=== PATIENT | male | born 1950 | race Caucasian/White ===

== ENCOUNTER 2017-04-10 10:15 | Day surgery (SDC) | payer BC ==
--- NOTE | ~2017-04-10 | EGD ---
EGD REPORT [facility] [address] [address] NAME: CORNELL MCGARRY : [birth year] STATUS : REG [facility]#: [id number] AGE: 66 ADM/REG DATE : 04/10/17 MR#: [id number] REPORT SERV DATE: 04/10/17 DICTATED BY: TRUNG NASCIMENTO DATE: 04/10/17 REPORT STATUS : Draft [facility]: [facility] DATE: 04/10/17 Endoscopy Center Patient Name: Cornell Mcgarry Date of : 1950 Attending MD: RTUNG NASCIMENTO, Procedure Date No Time: 04/10/2017 Procedure: Upper EUS Indications: Esophageal mucosal mass/polyp found on endoscopy Referring MD: BRIELLE GONZALEZ, MERRILL BHATIA MD Medicines: Monitored Anesthesia Care Complications: No immediate complications. Estimated blood loss: None. Procedure: Pre-Anesthesia Assessment: - ASA Grade Assessment: II - A patient with mild systemic disease. After obtaining informed consent, the endoscope was passed under direct vision. Throughout the procedure, the patient's blood pressure, pulse, and oxygen saturations were monitored continuously. The Endoscope was introduced through the mouth, and advanced to the second part of duodenum. The GIF [id number] was introduced through the mouth, and advanced to the second part of duodenum. Findings: Endoscopic Finding : A medium-sized, fungating mass with no bleeding and with no stigmata of recent bleeding was found in the lower third of the esophagus. The mass was partially obstructing. This spanned from the GE junction at 41 to 38 cm proixmally. Diffuse moderately congested mucosa was found in the cardia. This appeared to be likely submucosal infiltration from the tumor and extended about 2 cm distal to GE junction. The exam of the stomach was otherwise normal. The examined duodenum was endoscopically normal. Endosonographic Finding : A hypoechoic mass was found in the lower third of the esophagus. This appeared to be extending into cardia with deepest depth of invasion in the more distal portion. The lesion was partially circumferential (involving 60% of the lumen). The endosonographic borders were well-defined. There was sonographic evidence suggesting invasion into the adventitia (Layer 5). No lymphadenopathy seen. There was no sign of significant endosonographic abnormality in the entire pancreas. The pancreas was well visualized. There was no sign of significant endosonographic abnormality in the EGD REPORT [address] [place]. [address] NAME: CORNELL MCGARRY : [birth year] STATUS : [place] [facility] [place]#: [id number] AGE: 66 ADM/REG DATE : 04/10/17 MR#: [id number] REPORT SERV DATE: 04/10/17 DICTATED BY: TRUNG NASCIMENTO DATE: 04/10/17 REPORT STATUS : Draft TRANSCRIBED BY: [facility] DATE: 04/10/17 common bile duct. An unremarkable gallbladder was identified. 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 - Congestive gastropathy. - Normal examined duodenum. - A mass was found in the lower third of the esophagus. This was staged T3 N0 Mx by endosonographic criteria. - There was no sign of significant pathology in the entire pancreas. - There was no sign of significant pathology in the common bile duct. Recommendation: - Return to previous diet. - Continue present medications. - Return to referring physician. Procedure Code(s): --- Professional --- 65343, Esophagogastroduodenoscopy, flexible, transoral; with endoscopic ultrasound examination, including the esophagus, stomach, and either the duodenum or a surgically altered stomach where the jejunum is examined distal to the anastomosis Diagnosis Code(s): --- Professional --- D49.0, Neoplasm of unspecified behavior of digestive system K31.89, Other diseases of stomach and duodenum K22.8, Other specified diseases of esophagus K22.9, Disease of esophagus, unspecified CPT copyright 2013 [employer]. All rights reserved. The codes documented in this report are preliminary and upon engineering vice president review may be revised to meet current compliance requirements. TRUNG NASCIMENTO, 04/10/2017 12:10 PM Number of Addenda: 0 Note Initiated On: 04/10/2017 11:42 AM Scope Withdrawal Time 0 hours 0 minutes 0 seconds [id number] [place] [address]
[~2017-04-10 10:15] MED LIST: ARMOUR THYRO15 MG PO; CO Q-10100 MG PO; FISH-EPA1000 MG PO; PREV30 PO; VITAMIN D31000 UNIT PO
[2017-04-29] MEDS ORDERED: TESTOST CYP100 MG/ML IM (14:10)
== END 2017-04-10 23:59 | disposition home or self-care (01) ==
LOC: DMU 10:15
PROVIDERS: Internal Medicine Gastroenterology
PROC: 0DJ08ZZ Inspection of Upper Intestinal Tract, Via Natural or Artificial Opening Endoscopic (ICD-10-PCS; principal; 2017-04-10 12:00)
DX: D49.0 Neoplasm of unspecified behavior of digestive system (principal); K31.89 Other diseases of stomach and duodenum; K22.8 Other specified diseases of esophagus; K22.9 Disease of esophagus, unspecified; E03.9 Hypothyroidism, unspecified; Z98.890 Other specified postprocedural states; Z87.442 Personal history of urinary calculi; Z90.89 Acquired absence of other organs; Z79.899 Other long term (current) drug therapy
CPT/HCPCS: C1725